=== PATIENT | female | born 1980 | race Caucasian/White ===

== ENCOUNTER 2019-05-28 04:38 | Inpatient (IN) | payer BC ==
[~2019-05-28 04:38] MED LIST: Misoprostol 25 MCG (1/4 of 100 MCG) Tab VAG ONE
[2019-05-28] MEDS ORDERED: Misoprostol 25 MCG (1/4 of 100 MCG) Tab VAG ONE (20:00)
[2019-05-28] MEDS ORDERED: Acetaminophen 325 MG Tab PO PRN (20:27)
[2019-05-28] MEDS ORDERED: Sodium Chloride 0.9% 10 ML Syringe FLUSH PRN (20:27)
[2019-05-28] MEDS ORDERED: Oxytocin/Lactated Ringers 10 UNIT/1,000 ML BAG IV SCH (20:30)
[2019-05-29] MEDS ORDERED: Misoprostol 100 MCG Tab PO SCH
[2019-05-29] MEDS ORDERED: Bupivacaine 0.25% 10 ML SDV ONE
[2019-05-29] MEDS: Lactated Ringers 1,000 ML IV SCH ×2 (01:56→03:04)
[2019-05-29] MEDS ORDERED: Bupivacaine/fentaNYL/NS 100 ML Bag EPIDUR PRN (02:07)
[2019-05-29] MEDS ORDERED: ePHEDrine 50 MG/ML SDV IVPUSH PRN (02:07)
[2019-05-29] MEDS ORDERED: fentaNYL 100 MCG/2 ML SDV EPIDUR PRN (02:07)
[2019-05-29] MEDS ORDERED: diphenhydrAMINE 50 MG/ML SDV IVPUSH PRN (02:07)
--- NOTE | 2019-05-29 02:41 | PCM.PREANE ---
Preanesthetic Assessment - Procedure Proposed Procedure: neida - Anesthesia/Transfusion/Family Hx Anesthesia History: Prior Anesthesia Without Reaction Family History of Anesthesia Reaction: No Transfusion History: No Prior Transfusion(s) - Review of Systems General: No Symptoms Pulmonary: No Symptoms, Cough (because of allergies) Cardiovascular: No Symptoms Gastrointestinal: No Symptoms Neurological: No Symptoms Other: Reports: None - Physical Assessment Respiratory Rate: 14 Vital Signs: Last Vital Signs Temp 98.1 F 05/28/19 20:52 Pulse 72 05/28/19 20:52 Resp 14 05/28/19 20:52 BP 121/72 05/28/19 20:52 Pulse Ox Height: 5 ft 4 in Weight: 81.42 kg ASA Class: 2 Mental Status: Alert & Oriented x3 Airway Class: Mallampati = 1 Dentition: Reports: Normal Dentition Thyro-Mental Finger Breadths: 3 Mouth Opening Finger Breadths: 3 ROM/Head Extension: Full Lungs: Clear to Auscultation, Normal Respiratory Effort Cardiovascular: Regular Rate, Regular Rhythm - Lab Values: Laboratory Last Values WBC 12.52 K/mm3 (3.98-10.04) H 05/28/19 20:50 RBC 3.88 M/mm3 (3.98-5.22) L 05/28/19 20:50 Hgb 11.7 gm/L (11.2-15.7) 05/28/19 20:50 Hct 34.6 % (34.1-44.9) 05/28/19 20:50 MCV 89.2 fl (79.4-94.8) 05/28/19 20:50 MCH 30.2 pg (25.6-32.2) 05/28/19 20:50 MCHC 33.8 g/dl (32.2-35.5) 05/28/19 20:50 RDW Std Deviation 42.1 fL (36.4-46.3) 05/28/19 20:50 Plt Count 278 K/mm3 (182-369) 05/28/19 20:50 MPV 10.0 fl (9.4-12.3) 05/28/19 20:50 Neut % (Auto) 56.5 % (34.0-71.1) 05/28/19 20:50 Lymph % (Auto) 32.7 % (19.3-51.7) 05/28/19 20:50 [place] % (Auto) 9.2 % (4.7-12.5) 05/28/19 20:50 Eos % (Auto) 1.0 (0.7-5.8) 05/28/19 20:50 Baso % (Auto) 0.4 % (0.1-1.2) 05/28/19 20:50 Neut # (Auto) 7.07 K/mm3 (1.56-6.13) H 05/28/19 20:50 Lymph # (Auto) 4.10 K/mm3 (1.18-3.74) H 05/28/19 20:50 [place] # (Auto) 1.15 K/mm3 (0.24-0.36) H 05/28/19 20:50 Eos # (Auto) 0.12 K/mm3 (0.04-0.36) 05/28/19 20:50 Baso # (Auto) 0.05 K/mm3 (0.01-0.08) 05/28/19 20:50 - Allergies Allergies/Adverse Reactions: Allergies Allergy/AdvReac Type Severity Reaction Status Date / Time No Known Allergies Allergy Verified 05/28/19 20:42 - Blood Blood Available: No - Acknowledgements Anesthesia Type Planned: Epidural Pt an Appropriate Candidate for the Planned Anesthesia: Yes Alternatives and Risks of Anesthesia Discussed w Pt/Guardian: Yes Pt/Guardian Understands and Agrees with Anesthesia Plan: Yes PreAnesthesia Questionnaire Other HEENT History: multiple ear infections as child Cardiovascular History: Reports: None Respiratory History: Reports: None Gastrointestinal History: Reports: GERD, Other (See Below) Other Gastrointestinal History: Inguinal hernia 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: 0 Psychiatric History: Reports: Bipolar, Depression Other Psychiatric History: Was taking wellbutrin, stopped with and has been seing counselor Oncologic (Cancer) History: Reports: None - Past Surgical History HEENT Surgical History: Reports: Adenoidectomy, Tonsillectomy Female Surgical History: Reports: Other (See Below) Other Female Surgeries/Procedures: Abnormal PAP Musculoskeletal Surgical History: Reports: Other (See Below) Other Musculoskeletal Surgeries/Procedures:: ACL repair and foot surgery - SUBSTANCE USE Smoking Status *Q: Never Smoker Tobacco Use Within Last Twelve Months: No Second Hand Smoke Exposure: No Recreational Drug Use History: No - HOME MEDS Home Medications: Home Meds PNV95/Ferrous Fumarate/FA [ Tablet] 1 tab PO DAILY 05/28/19 [History] - CURRENT (IN HOUSE) MEDS Current Meds: Current Medications Acetaminophen (Tylenol) 650 mg PO Q4H PRN PRN Reason: Fever greater than 100.4 Diphenhydramine HCl (Benadryl) 25 mg IVPUSH Q6H PRN PRN Reason: pruritis Ephedrine Sulfate (Ephedrine Sulfate) 5 mg IVPUSH ASDIRECTED PRN PRN Reason: Hypotension Fentanyl (Sublimaze) 100 mcg EPIDUR Q3H PRN PRN Reason: Pain Last Admin: 05/29/19 02:37 Dose: 100 mcg Fentanyl/Bupivacaine HCl (Fentanyl/Bupivacaine/Ns 2 Mcg-0.125% 100 Ml) 100 ml EPIDUR ASDIRECTED PRN PRN Reason: Pain Last Admin: 05/29/19 02:38 Dose: 100 ml Lactated Ringer's (Ringers, Lactated) 1,000 mls @ 40 mls/hr IV ASDIRECTED CHELSY Last Admin: 05/29/19 01:56 Dose: 40 mls/hr Oxytocin/Lactated Ringer's (Pitocin In Lr 10 Units/1,000 Ml) 10 unit in 1,000 mls @ 12 mls/hr IV TITRATE CHELSY; Protocol Misoprostol (Cytotec) 25 mcg VAG Q4H CHELSY Stop: 05/29/19 08:01 Sodium Chloride (Saline Flush) 10 ml FLUSH ASDIRECTED PRN PRN Reason: Keep Vein Open Discontinued Medications Misoprostol (Cytotec) 25 mcg VAG ONETIME ONE Stop: 05/28/19 20:01 Last Admin: 05/28/19 20:00 Dose: 25 mcg
[2019-05-29] MEDS: Misoprostol 25 MCG (1/4 of 100 MCG) Tab VAG SCH ×2 (03:05→12:08)
[2019-05-29] MEDS ORDERED: Oxytocin/Lactated Ringers 10 UNIT/1,000 ML BAG IV SCH ×2 (03:15→05:00)
--- NOTE | 2019-05-29 05:12 | PCM.SN ---
- Free Text/Narrative Note: Stage I - Patient presented at 7pm on 05-28-19 for induction of labor. Cytotec x1. Desired epidural. Progressed nicely to complete with no other augmentation. Stage II - of viable female, weight pending, APGARS 9/9, at 0438. Head delivered in controlled manner over intact perineum. Body and shoulders atraumatically. Positive cry. To maternal abdomen. Cord clamped and cut after 5 + minutes. Stage III - of intact placenta. 3vc. Small second degree repaired with 3-0 vicryl. EBL 100.
--- NOTE | 2019-05-29 05:17 | PCM.LDHP ---
L&D History of Present Illness - General Date of Service: 05/28/19 Admit Problem/Dx: Patient Status Order with Admit Dx/Problem 05/28/19 20:27 Patient Status [ADT] Routine Admission Diagnosis/Problem Admission Diagnosis/Problem Source of Information: Patient - History of Present Illness Introduction:: 38 year old at 39w4d here for induction. PNC with myself complicated by history of depression. Doing well. 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: Psychiatric History: Reports: Bipolar, Depression Other Psychiatric History: Was taking wellbutrin, stopped with and has been seing counselor Oncologic (Cancer) History: Reports: None - Past Surgical History HEENT Surgical History: Reports: Adenoidectomy, Tonsillectomy Female Surgical History: Reports: Other (See Below) Other Female Surgeries/Procedures: Abnormal PAP Musculoskeletal Surgical History: Reports: Other (See Below) Other Musculoskeletal Surgeries/Procedures:: ACL repair and foot surgery Social & Family History - Family History Family Medical History: Noncontributory - Tobacco Use Smoking Status *Q: Never Smoker Second Hand Smoke Exposure: No - Caffeine Use Caffeine Use: Reports: None - Recreational Drug Use Recreational Drug Use: No H&P Review of Systems - Review of Systems: Review Of Systems: See Below General: Reports: No Symptoms HEENT: Reports: No Symptoms Pulmonary: Reports: No Symptoms Cardiovascular: Reports: No Symptoms Gastrointestinal: Reports: No Symptoms Genitourinary: Reports: No Symptoms Musculoskeletal: Reports: No Symptoms Skin: Reports: No Symptoms Psychiatric: Reports: No Symptoms Neurological: Reports: No Symptoms Hematologic/Lymphatic: Reports: No Symptoms Immunologic: Reports: No Symptoms L&D Exam - Exam Exam: See Below - Vital Signs Vital Signs: Last Vital Signs Temp 36.7 C 05/28/19 20:52 Pulse 72 05/28/19 20:52 Resp 14 05/29/19 02:41 BP 121/72 05/28/19 20:52 Pulse Ox Weight: 81.42 kg - OB Specific Contraction Intensity: Irritability Movement: Active Heart Tones: Present Heart Rate (FHR) Variability: Moderate (6-25 bmp) Presentation: Vertex - Mandel Score Mandel Score Cervix Position: Anterior Mandel Score Consistency: Soft Mandel Score Effacement: 0-30% Mandel Score Dilation: 1-2 cm Mandel Score 's Station: -3 Mandel Score Total: 5 - Exam General: Alert, Oriented HEENT: PERRLA, Conjunctiva Clear, EACs Clear, EOMI, Hearing Intact, Mucosa Moist & [place], Nares Patent, Normal Nasal Septum, Posterior Pharynx Clear, TMs Clear Neck: Supple, Trachea Midline Lungs: Clear to Auscultation, Normal Respiratory Effort Cardiovascular: Regular Rate, Regular Rhythm GI/Abdominal Exam: Normal Bowel Sounds, Soft, Non-Tender, No Organomegaly, No Distention, No Abnormal Bruit, No Mass, Pelvis Stable Back Exam: Normal Inspection, Full Range of Motion Extremities: Normal Inspection, Normal Range of Motion, Non-Tender, No Pedal Edema, Normal Capillary Refill Skin: Warm, Dry, Intact Neurological: Cranial Nerves Intact, Reflexes Equal Bilateral Psychiatric: Alert, Normal Affect, Normal Mood - Patient Data Lab Results Last 24 hrs: Laboratory Results - last 24 hr 05/28/19 Range/Units 20:50 WBC 12.52 H (3.98-10.04) K/mm3 RBC 3.88 L (3.98-5.22) M/mm3 Hgb 11.7 (11.2-15.7) gm/L Hct 34.6 (34.1-44.9) % MCV 89.2 (79.4-94.8) fl MCH 30.2 (25.6-32.2) pg MCHC 33.8 (32.2-35.5) g/dl RDW Std Deviation 42.1 (36.4-46.3) fL Plt Count 278 (182-369) K/mm3 MPV 10.0 (9.4-12.3) fl Neut % (Auto) 56.5 (34.0-71.1) % Lymph % (Auto) 32.7 (19.3-51.7) % [place] % (Auto) 9.2 (4.7-12.5) % Eos % (Auto) 1.0 (0.7-5.8) Baso % (Auto) 0.4 (0.1-1.2) % Neut # (Auto) 7.07 H (1.56-6.13) K/mm3 Lymph # (Auto) 4.10 H (1.18-3.74) K/mm3 [place] # (Auto) 1.15 H (0.24-0.36) K/mm3 Eos # (Auto) 0.12 (0.04-0.36) K/mm3 Baso # (Auto) 0.05 (0.01-0.08) K/mm3 Result Diagrams: 05/28/19 20:50 Problem List Initiated/Reviewed/Updated: Yes Orders Last 24hrs: Active Orders 24 hr Category Date Time Status Patient Status Manage Transfer [TRANSFER] Routine ADT 05/29/19 05:05 Active Patient Status [ADT] Routine ADT 05/28/19 20:27 Active Communication Order [RC] ASDIRECTED Care 05/28/19 20:27 Active Communication Order [RC] ASDIRECTED Care 05/28/19 20:27 Active Communication Order [RC] ASDIRECTED Care 05/28/19 20:27 Active Monitoring [RC] INTERMITTENT Care 05/28/19 20:27 Active Notify Provider [RC] ASDIRECTED Care 05/28/19 20:27 Active Notify Provider [RC] ASDIRECTED Care 05/28/19 20:30 Active Notify Provider [RC] ASDIRECTED Care 05/29/19 02:07 Active Peripheral IV Care [RC] . DIRECTED Care 05/28/19 20:29 Active Up ad Ragini [RC] ASDIRECTED Care 05/28/19 20:29 Active Vital Signs [RC] ASDIRECTED Care 05/28/19 20:27 Active Regular Diet [DIET] Diet 05/28/19 Breakfast Active BLOOD BANK HOLD SPECIMEN [BBK] Stat Lab 05/28/19 20:33 Ordered RAPID PLASMA REAGIN,RPR [CHEM] Stat Lab 05/28/19 20:50 Received Acetaminophen [Tylenol] Med 05/28/19 20:27 Active 650 mg PO Q4H PRN Bupivacaine/fentaNYL/NS [fentaNYL/Bupivacaine/NS 2 MCG- Med 05/29/19 02:07 Active 0.125% 100 ML] 100 ml EPIDUR ASDIRECTED PRN Lactated Ringers [Ringers, Lactated] 1,000 ml Med 05/28/19 20:30 Active IV ASDIRECTED Oxytocin/Lactated Ringers [Pitocin in LR 10 Units/1,000 Med 05/28/19 20:30 Active ML] 10 unit in 1,000 ml IV TITRATE Oxytocin/Lactated Ringers [Pitocin in LR 10 Units/1,000 Med 05/29/19 05:00 Active ML] 10 unit in 1,000 ml IV TITRATE Sodium Chloride 0.9% [Saline Flush] Med 05/28/19 20:27 Active 10 ml FLUSH ASDIRECTED PRN diphenhydrAMINE [Benadryl] Med 05/29/19 02:07 Active 25 mg IVPUSH Q6H PRN ePHEDrine [ePHEDrine sulfate] Med 05/29/19 02:07 Active 5 mg IVPUSH ASDIRECTED PRN fentaNYL [Sublimaze] Med 05/29/19 02:07 Active 100 mcg EPIDUR Q3H PRN miSOPROStol [Cytotec] Med 05/29/19 00:00 Active 25 mcg VAG Q4H Medication Administration Instruction [OM.PC] Oth 05/28/19 20:45 Ordered ASDIRECTED Peripheral IV Insertion Adult [OM.PC] Routine Oth 05/28/19 20:27 Ordered Resuscitation Status Routine Resus Stat 05/29/19 05:05 Ordered Medication Orders Acetaminophen (Tylenol) 650 mg PO Q4H PRN PRN Reason: Fever greater than 100.4 Diphenhydramine HCl (Benadryl) 25 mg IVPUSH Q6H PRN PRN Reason: pruritis Ephedrine Sulfate (Ephedrine Sulfate) 5 mg IVPUSH ASDIRECTED PRN PRN Reason: Hypotension Fentanyl (Sublimaze) 100 mcg EPIDUR Q3H PRN PRN Reason: Pain Last Admin: 05/29/19 02:37 Dose: 100 mcg Fentanyl/Bupivacaine HCl (Fentanyl/Bupivacaine/Ns 2 Mcg-0.125% 100 Ml) 100 ml EPIDUR ASDIRECTED PRN PRN Reason: Pain Last Admin: 05/29/19 02:38 Dose: 100 ml Lactated Ringer's (Ringers, Lactated) 1,000 mls @ 40 mls/hr IV ASDIRECTED CHELSY Last Admin: 05/29/19 03:04 Dose: 40 mls/hr Infusion: 05/29/19 03:04 Dose: 40 mls/hr Admin: 05/29/19 01:56 Dose: 40 mls/hr Oxytocin/Lactated Ringer's (Pitocin In Lr 10 Units/1,000 Ml) 10 unit in 1,000 mls @ 12 mls/hr IV TITRATE CHELSY; Protocol Oxytocin/Lactated Ringer's (Pitocin In Lr 10 Units/1,000 Ml) 10 unit in 1,000 mls @ 500 mls/hr IV TITRATE CHELSY; Protocol Last Admin: 05/29/19 05:02 Dose: 500 mls/hr, 500 mls/hr Misoprostol (Cytotec) 25 mcg VAG Q4H CHELSY Stop: 05/29/19 08:01 Last Admin: 05/29/19 03:05 Dose: Not Given Sodium Chloride (Saline Flush) 10 ml FLUSH ASDIRECTED PRN PRN Reason: Keep Vein Open Assessment/Plan Comment:: 38 year old here for induction of labor. Doing well.
[2019-05-29] MEDS ORDERED: Witch Hazel Medicated Pads 40/Jar TOP PRN (05:22)
[2019-05-29] MEDS ORDERED: Docusate Sodium 100 MG Cap PO PRN (05:22)
[2019-05-29] MEDS ORDERED: Lanolin 100% Cream 7 GM Tube TOP PRN (05:22)
[2019-05-29] MEDS ORDERED: Benzocaine/Menthol 20%-0.5% Spray 56 GM Canister TOP PRN (05:22)
[2019-05-29] MEDS ORDERED: Acetaminophen 325 MG Tab PO PRN (05:22)
[2019-05-29] MEDS: Ibuprofen 600 MG Tab PO PRN (07:19)
--- NOTE | 2019-05-29 07:34 | PCM48HPAN ---
Post Anesthesia Note - EVALUATION WITHIN 48HRS OF ANESTHETIC Vital Signs in Normal Range: Yes Patient Participated in Evaluation: Yes Respiratory Function Stable: Yes Airway Patent: Yes Cardiovascular Function Stable: Yes Hydration Status Stable: Yes Pain Control Satisfactory: Yes Mental Status Recovered: Yes Resp Rate: 14
--- NOTE | 2019-05-29 07:34 | PCM.POSTAN ---
POST ANESTHESIA ASSESSMENT - MENTAL STATUS Mental Status: Alert - RESPIRATORY Respiratory Status: Respiratory Rate WNL, Airway Patent - CARDIOVASCULAR CV Status: Pulse Rate WNL - GASTROINTESTINAL GI Status: No Symptoms - POST OP HYDRATION Hydration Status: Adequate & Stable
[2019-05-30] MEDS: Ibuprofen 600 MG Tab PO PRN (00:34)
--- NOTE | 2019-05-30 07:59 | PCM.PNPP ---
- General Info Date of Service: 05/30/19 Functional Status: Reports: Pain Controlled, Tolerating Diet, Ambulating, Urinating - Review of Systems General: Reports: No Symptoms Pulmonary: Reports: No Symptoms Cardiovascular: Reports: No Symptoms Gastrointestinal: Reports: No Symptoms Genitourinary: Reports: No Symptoms Musculoskeletal: Reports: No Symptoms Neurological: Reports: No Symptoms - Patient Data Vital Signs - Most Recent: Last Vital Signs Temp 36.8 C 05/30/19 02:32 Pulse 67 05/30/19 02:32 Resp 16 05/30/19 02:32 BP 122/62 05/30/19 02:32 Pulse Ox 97 05/30/19 02:32 Weight - Most Recent: 81.42 kg Lab Results - Last 24 Hours: Laboratory Results - last 24 hr 05/28/19 Range/Units 20:50 RPR Non-reactive (NONREACTIVE) Med Orders - Current: Current Medications Acetaminophen (Tylenol) 650 mg PO Q4H PRN PRN Reason: mild pain or fever Benzocaine/Menthol (Dermoplast Pain Relief [place]) 0 gm TOP ASDIRECTED PRN PRN Reason: Perineal Comfort Measure Last Admin: 05/29/19 07:18 Dose: 1 canister Docusate Sodium (Colace) 100 mg PO BID PRN PRN Reason: Constipation Emollient Ointment (Lansinoh Hpa) 0 gm TOP ASDIRECTED PRN PRN Reason: Sore Nipples Ibuprofen (Motrin) 600 mg PO Q6H PRN PRN Reason: Mild pain or fever Last Admin: 05/30/19 00:34 Dose: 600 mg Witch [place] (Tucks) 1 pad TOP ASDIRECTED PRN PRN Reason: Pain Last Admin: 05/29/19 07:19 Dose: 1 tub Discontinued Medications Acetaminophen (Tylenol) 650 mg PO Q4H PRN PRN Reason: Fever greater than 100.4 Diphenhydramine HCl (Benadryl) 25 mg IVPUSH Q6H PRN PRN Reason: pruritis Ephedrine Sulfate (Ephedrine Sulfate) 5 mg IVPUSH ASDIRECTED PRN PRN Reason: Hypotension Fentanyl (Sublimaze) 100 mcg EPIDUR Q3H PRN PRN Reason: Pain Last Admin: 05/29/19 02:37 Dose: 100 mcg Fentanyl/Bupivacaine HCl (Fentanyl/Bupivacaine/Ns 2 Mcg-0.125% 100 Ml) 100 ml EPIDUR ASDIRECTED PRN PRN Reason: Pain Last Admin: 05/29/19 02:38 Dose: 100 ml Lactated Ringer's (Ringers, Lactated) 1,000 mls @ 40 mls/hr IV ASDIRECTED CHELSY Last Admin: 05/29/19 03:04 Dose: 40 mls/hr Oxytocin/Lactated Ringer's (Pitocin In Lr 10 Units/1,000 Ml) 10 unit in 1,000 mls @ 12 mls/hr IV TITRATE CHELSY; Protocol Oxytocin/Lactated Ringer's (Pitocin In Lr 10 Units/1,000 Ml) 10 unit in 1,000 mls @ 500 mls/hr IV TITRATE CHELSY; Protocol Last Admin: 05/29/19 05:02 Dose: 500 mls/hr, 500 mls/hr Misoprostol (Cytotec) 25 mcg VAG ONETIME ONE Stop: 05/28/19 20:01 Last Admin: 05/28/19 20:00 Dose: 25 mcg Misoprostol (Cytotec) 25 mcg VAG Q4H CHELSY Stop: 05/29/19 08:01 Last Admin: 05/29/19 12:08 Dose: Not Given Sodium Chloride (Saline Flush) 10 ml FLUSH ASDIRECTED PRN PRN Reason: Keep Vein Open - Infant Interaction Infant Disposition, : to Nursery Feeding: Breastfed ; Nursed Well Support Person: Mother - Recovery Exam Fundal Tone: Firm Fundal Level: 1 Fingerbreadths Below Umbilicus Fundal Placement: Midline Lochia Amount: Small Lochia Color: Rubra/Red Episiotomy/Laceration: Approximated Bladder Status: Voiding Urinary Elimination: Voided - Exam General: Alert, Oriented, Cooperative GI/Abdominal Exam: Soft, Non-Tender Extremities: Normal Inspection Skin: Warm, Dry, Intact - Problem List Review Problem List Initiated/Reviewed/Updated: Yes - My Orders Last 24 Hours: My Active Orders 05/30/19 Breakfast Regular Diet [DIET] - Assessment Assessment:: 38 y/o G1 now P1001 PPD#1 from at 39 4/7 wks - Plan Plan:: * Routine cares * Breast feeding * Patient interested in discharge today. Will see if Peds agreeable
--- NOTE | 2019-05-30 08:03 | PCM.DCSUM1 ---
Discharge Summary - Discharge Data Discharge Date: 05/30/19 Discharge Disposition: Home, Self-Care 01 Condition: Good - Patient Summary/Data Complications: None Consults: None Recommended Follow-up Testing/Procedures: Follow up in 3 weeks for check Hospital Course: 38 y/o presented at 39 5/7 wks for IOL. This was done with cytotec only. She progressed well and underwent an uncomplicated . See delivery note. she did well and was discharged home on PPD#1 - Patient Instructions Diet: Regular Diet as Tolerated Activity: As Tolerated Activity, Other: Pelvic rest for 6 weeks Driving: May Drive Today Showering/Bathing: May Shower Showering/Bathing, Other: May Bathe Notify Provider of: Fever, Increased Pain, Swelling and Redness, Drainage, Nausea and/or Vomiting - Discharge Plan *PRESCRIPTION DRUG MONITORING PROGRAM REVIEWED*: Not Applicable *COPY OF PRESCRIPTION DRUG MONITORING REPORT IN PATIENT ARTHUR: Not Applicable Home Medications: Home Meds PNV95/Ferrous Fumarate/FA [ Tablet] 1 tab PO DAILY 05/28/19 [History] Docusate Sodium [Colace] 100 mg PO BID PRN cap 05/30/19 [Rx] Ibuprofen [Motrin] 600 mg PO Q6H PRN tablet 05/30/19 [Rx] Referrals: Sari Leroy MD [Primary Care Provider] - (3 weeks for check) - Discharge Summary/Plan Comment DC Time >30 min.: No - Patient Data Vitals - Most Recent: Last Vital Signs Temp 36.8 C 05/30/19 02:32 Pulse 67 05/30/19 02:32 Resp 16 05/30/19 02:32 BP 122/62 05/30/19 02:32 Pulse Ox 97 05/30/19 02:32 Weight - Most Recent: 81.42 kg Lab Results - Last 24 hrs: Laboratory Results - last 24 hr 05/28/19 Range/Units 20:50 RPR Non-reactive (NONREACTIVE) Med Orders - Current: Current Medications Acetaminophen (Tylenol) 650 mg PO Q4H PRN PRN Reason: mild pain or fever Benzocaine/Menthol (Dermoplast Pain Relief [place]) 0 gm TOP ASDIRECTED PRN PRN Reason: Perineal Comfort Measure Last Admin: 05/29/19 07:18 Dose: 1 canister Docusate Sodium (Colace) 100 mg PO BID PRN PRN Reason: Constipation Emollient Ointment (Lansinoh Hpa) 0 gm TOP ASDIRECTED PRN PRN Reason: Sore Nipples Ibuprofen (Motrin) 600 mg PO Q6H PRN PRN Reason: Mild pain or fever Last Admin: 05/30/19 00:34 Dose: 600 mg Witch [place] (Tucks) 1 pad TOP ASDIRECTED PRN PRN Reason: Pain Last Admin: 05/29/19 07:19 Dose: 1 tub Discontinued Medications Acetaminophen (Tylenol) 650 mg PO Q4H PRN PRN Reason: Fever greater than 100.4 Diphenhydramine HCl (Benadryl) 25 mg IVPUSH Q6H PRN PRN Reason: pruritis Ephedrine Sulfate (Ephedrine Sulfate) 5 mg IVPUSH ASDIRECTED PRN PRN Reason: Hypotension Fentanyl (Sublimaze) 100 mcg EPIDUR Q3H PRN PRN Reason: Pain Last Admin: 05/29/19 02:37 Dose: 100 mcg Fentanyl/Bupivacaine HCl (Fentanyl/Bupivacaine/Ns 2 Mcg-0.125% 100 Ml) 100 ml EPIDUR ASDIRECTED PRN PRN Reason: Pain Last Admin: 05/29/19 02:38 Dose: 100 ml Lactated Ringer's (Ringers, Lactated) 1,000 mls @ 40 mls/hr IV ASDIRECTED CHELSY Last Admin: 05/29/19 03:04 Dose: 40 mls/hr Oxytocin/Lactated Ringer's (Pitocin In Lr 10 Units/1,000 Ml) 10 unit in 1,000 mls @ 12 mls/hr IV TITRATE CHELSY; Protocol Oxytocin/Lactated Ringer's (Pitocin In Lr 10 Units/1,000 Ml) 10 unit in 1,000 mls @ 500 mls/hr IV TITRATE CHELSY; Protocol Last Admin: 05/29/19 05:02 Dose: 500 mls/hr, 500 mls/hr Misoprostol (Cytotec) 25 mcg VAG ONETIME ONE Stop: 05/28/19 20:01 Last Admin: 05/28/19 20:00 Dose: 25 mcg Misoprostol (Cytotec) 25 mcg VAG Q4H CHELSY Stop: 05/29/19 08:01 Last Admin: 05/29/19 12:08 Dose: Not Given Sodium Chloride (Saline Flush) 10 ml FLUSH ASDIRECTED PRN PRN Reason: Keep Vein Open
== END 2019-05-30 15:20 | disposition home or self-care (01) | DRG 560 ==
LOC: JD.OB 04:38 → OBSVTOIN 05-29 04:38 → JD.OB 05-29 04:39
PROVIDERS: ADMIT Obstetrics & Gynecology; ATTEND Obstetrics & Gynecology
PROC: 10E0XZZ Delivery of Products of Conception, External Approach (ICD-10-PCS; principal; 2019-05-29)
PROC: 3E033VJ Introduction of Other Hormone into Peripheral Vein, Percutaneous Approach (ICD-10-PCS; 2019-05-29)
PROC: 0KQM0ZZ Repair Perineum Muscle, Open Approach (ICD-10-PCS; 2019-05-29)
DX: O70.1 Second degree perineal laceration during delivery (principal); Z3A.39 39 weeks gestation of pregnancy; Z37.0 Single live birth
CPT/HCPCS: 36415; 51702; 59025; 59409; 85025; 86592; A9270-GY; J2590; J3010; J3490; J7120